=== PATIENT | female | born 1960 | race Asian ===

== ENCOUNTER 2017-10-04 13:16 | Emergency (ER) | payer MEDICAID, SELFPAY ==
[~2017-10-04] VITALS: Ht 170.2 cm; Wt 75.0 kg
[~2017-10-04 13:16] MED LIST: NOCURR
[2017-10-04 13:34] VITALS: BP 171/100
[2017-10-04] MEDS ORDERED: DOCU250C90 PO (13:38)
[2017-10-04] MEDS ORDERED: SPIR25 PO (13:38)
[2017-10-04] MEDS ORDERED: APIX5TAB PO (13:38)
[2017-10-04] MEDS ORDERED: FURO20TA4 PO (13:38)
== END 2017-10-04 14:03 | disposition left against medical advice (07) ==
LOC: EMS 13:16
DX: M54.5 Low back pain (principal); I10 Essential (primary) hypertension; Z88.0 Allergy status to penicillin
CPT/HCPCS: 99281